=== PATIENT | female | born 1955 | race Native Hawaiian/Other Pacific Islander ===

== ENCOUNTER 2016-12-01 08:05 | Outpatient (CLI) | payer BC | END 2016-12-01 10:20 | disposition home or self-care (01) | LOC: MAMMO 08:05 | DX: Z12.31 Encounter for screening mammogram for malignant neoplasm of breast (principal) | CPT/HCPCS: G0202-TC ==

== ENCOUNTER 2017-12-12 08:20 | Outpatient (CLI) | payer BC | END 2017-12-12 19:23 | disposition home or self-care (01) | LOC: MAMMO 08:20 | DX: Z12.31 Encounter for screening mammogram for malignant neoplasm of breast (principal) ==

== ENCOUNTER 2019-01-14 08:51 | Outpatient (CLI) | payer BC | END 2019-01-14 23:25 | disposition home or self-care (01) | LOC: MAMMO 08:51 | DX: Z12.31 Encounter for screening mammogram for malignant neoplasm of breast (principal) ==

== ENCOUNTER 2021-01-05 09:11 | Outpatient (CLI) | payer OTHER | END 2021-01-05 22:11 | disposition home or self-care (01) | LOC: MAMMO 09:11 | PROVIDERS: ATTEND Specialist | DX: Z12.31 Encounter for screening mammogram for malignant neoplasm of breast (principal) ==

== ENCOUNTER 2022-04-20 10:29 | Outpatient (CLI) | payer OTHER | END 2022-04-20 19:13 | disposition home or self-care (01) | LOC: MAMMO 10:29 | PROVIDERS: ATTEND Nurse Practitioner Family | DX: Z12.31 Encounter for screening mammogram for malignant neoplasm of breast (principal) ==

== ENCOUNTER 2022-12-18 08:58 | Outpatient (CLI) | payer OTHER | END 2022-12-18 18:54 | disposition home or self-care (01) | LOC: RAD 08:58 | PROVIDERS: ATTEND Specialist | DX: M81.0 Age-related osteoporosis without current pathological fracture (principal) ==

== ENCOUNTER 2023-04-23 10:27 | Outpatient (CLI) | payer OTHER | END 2023-04-23 18:53 | disposition home or self-care (01) | LOC: MAMMO 10:27 | PROVIDERS: ATTEND Specialist | DX: Z12.31 Encounter for screening mammogram for malignant neoplasm of breast (principal) ==